=== PATIENT | male | born 1940 | race Caucasian/White ===

== ENCOUNTER 2016-06-30 13:22 | Outpatient (CLI) | payer MEDICARE | END 2016-06-30 13:23 | LOC: POD 13:22 | PROVIDERS: ATTEND Podiatrist | DX: L84 Corns and callosities (principal); B35.1 Tinea unguium; M79.674 Pain in right toe(s); M79.675 Pain in left toe(s) | CPT/HCPCS: G0463 ==

== ENCOUNTER 2016-09-08 14:18 | Outpatient (CLI) | payer MEDICARE | END 2016-09-08 14:20 | LOC: POD 14:18 | PROVIDERS: ATTEND Podiatrist | DX: B35.1 Tinea unguium (principal); M79.674 Pain in right toe(s); M79.675 Pain in left toe(s) | CPT/HCPCS: 11721; G0463 ==